=== PATIENT | male | born 1975 | race Caucasian/White ===

== ENCOUNTER 2017-09-10 13:19 | Emergency (ER) | payer SELFPAY ==
[2017-09-10] MEDS ORDERED: ISOVUE-370 76%-LOCM 1 ML ONE (13:41)
[2017-09-10] MEDS ORDERED: Fentanyl 100 MCG/2 ML VIAL SLOW IVP SCH (14:15)
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
[2017-09-10] MEDS ORDERED: Lidocaine 1% w/Epinephrine 1:100K 20 ML VIAL ONE (14:44)
[2017-09-10] MEDS ORDERED: Fentanyl 100 MCG/2 ML VIAL ONE (14:54)
[2017-09-10] MEDS ORDERED: Bacitracin Zinc 1 Packet ONE (17:49)
[2017-09-10] MEDS ORDERED: Ondansetron ODT 8 MG TAB ONE (17:49)
== END 2017-09-10 17:44 | disposition home or self-care (01) ==
LOC: ERS 13:19
DX: S09.90XA Unspecified injury of head, initial encounter (principal); S01.81XA Laceration without foreign body of other part of head, initial encounter; S01.111A Laceration without foreign body of right eyelid and periocular area, initial encounter; S16.1XXA Strain of muscle, fascia and tendon at neck level, initial encounter; S60.211A Contusion of right wrist, initial encounter; Z71.6 Tobacco abuse counseling; Z86.73 Personal history of transient ischemic attack (TIA), and cerebral infarction without residual deficits; F17.210 Nicotine dependence, cigarettes, uncomplicated; V86.59XA Driver of other special all-terrain or other off-road motor vehicle injured in nontraffic accident, initial encounter
CPT/HCPCS: 12014; 70450; 70486; 71260; 72125; 74177; 96361; 96374; 99406; J2001; J3010